=== PATIENT | male | born 1995 | race Caucasian/White ===

== ENCOUNTER 2018-08-20 09:48 | Emergency (ER) | payer OTHER ==
[~2018-08-20] VITALS: Ht 172.7 cm; Wt 74.4 kg
[2018-08-20] MEDS ORDERED: BUPROPION XL150 MG (10:13)
[2018-08-20] MEDS ORDERED: ATIVAN1 M1 (10:14)
== END 2018-08-20 12:36 | disposition home or self-care (01) ==
LOC: ER 09:48
DX: J32.8 Other chronic sinusitis (principal)